=== PATIENT | male | born 1985 | race Caucasian/White ===

== ENCOUNTER 2017-04-23 09:12 | Inpatient (IN) | payer OTHER ==
[~2017-04-23] VITALS: Ht 182.9 cm; Wt 64.7 kg
[2017-04-23] MEDS ORDERED: PLEASE ENTER ALLERGIES MC SCH ×2 (09:30)
[2017-04-23] MEDS ORDERED: SODIUM CHLORIDE 0.9% 1,000ML IVBOLUS ONE (09:30)
[2017-04-23] MEDS ORDERED: PLEASE ENTER HEIGHT AND WEIGHT MC SCH (09:30)
[2017-04-23 09:55] LABS: HEMATOCRIT 46.1 % (39.2-51.8); HEMOGLOBIN 15.8 g/dL (13.7-18.0); WHITE BLOOD COUNT 9.5 x10^3/uL (3.4-10)
[2017-04-23 10:06] LABS: BLOOD UREA NITROGEN 10 mg/dL (7-18)
[2017-04-23 10:14] LABS: ACETAMINOPHEN < 2 mcg/mL (10-30)
[2017-04-23 11:16] LABS: DAU SCREEN DISCLAIMER
[2017-04-23] MEDS ORDERED: LORazepam 1MG TABLET ONE ×2 (13:08→23:30)
[2017-04-23] MEDS ORDERED: NICOTINE 21 MG/24 HR PATCH.TD24 ONE (13:17)
[2017-04-23] MEDS ORDERED: NICOTINE 21 MG/24 HR PATCH.TD24 TD ONE (13:30)
[2017-04-23] MEDS ORDERED: LORazepam 1MG TABLET PO ONE (13:30)
[2017-04-23] MEDS: NICOTINE 7 MG/24 HR PATCH.TD24 TD SCH ×2 (15:00→23:34)
[2017-04-23 16:06] VITALS: BP 138/91
[2017-04-23] MEDS: SODIUM CHLORIDE 0.9% 1,000 ML IV SCH ×2 (18:32→23:33)
[2017-04-23] MEDS ORDERED: POLYETHYLENE GLYCOL 17 GM PACKET PO ONE (19:00)
[2017-04-23 19:50] VITALS: BP 135/89
[2017-04-23] MEDS: FLUOXETINE 10 MG CAP PO SCH (23:33)
[2017-04-23] MEDS: ACETAMINOPHEN 325 MG TABLET PO PRN (23:33)
[2017-04-23] MEDS: LORazepam 0.5MG TABLET PO PRN (23:34)
[2017-04-24] MEDS: SODIUM CHLORIDE 0.9% 1,000 ML IV SCH ×2 (03:19→15:19)
[2017-04-24 03:22] VITALS: BP 122/79
[2017-04-24 05:48] LABS: BLOOD UREA NITROGEN 16 mg/dL (7-18)
[2017-04-24 07:23] VITALS: BP 117/75
[2017-04-24] MEDS: ACETAMINOPHEN 325 MG TABLET PO PRN ×2 (10:16→19:32)
[2017-04-24] MEDS ORDERED: LORazepam 1MG TABLET ONE (10:30)
[2017-04-24] MEDS: LORazepam 0.5MG TABLET PO PRN ×2 (10:32→19:33)
[2017-04-24 13:49] VITALS: BP 131/80
[2017-04-24] MEDS: NICOTINE 7 MG/24 HR PATCH.TD24 TD SCH (15:20)
[2017-04-24] MEDS: FLUOXETINE 10 MG CAP PO SCH (19:32)
[2017-04-24 20:23] VITALS: BP 129/88
[2017-04-24] MEDS ORDERED: ALUMINUM/MAG/SIMETHICONE 30 ML UDC PO PRN (22:00)
[2017-04-25] MEDS: ONDANSETRON 2MG/ML, 2ML IVPush PRN ×2 (01:18→07:26)
[2017-04-25] MEDS: SODIUM CHLORIDE 0.9% 1,000 ML IV SCH ×3 (01:19→23:24)
[2017-04-25] MEDS: LORazepam 0.5MG TABLET PO PRN ×3 (01:30→17:43)
[2017-04-25 04:01] VITALS: BP 112/74
[2017-04-25 07:13] VITALS: BP 115/85
[2017-04-25] MEDS ORDERED: LORazepam 1MG TABLET ONE ×2 (09:49→17:41)
[2017-04-25 12:58] VITALS: BP 122/79
[2017-04-25] MEDS: NICOTINE 7 MG/24 HR PATCH.TD24 TD SCH (15:23)
[2017-04-25 19:41] VITALS: BP 121/76
[2017-04-25] MEDS: FLUOXETINE 10 MG CAP PO SCH (20:58)
[2017-04-26] MEDS: SODIUM CHLORIDE 0.9% 1,000 ML IV SCH ×2 (00:43→12:15)
[2017-04-26] MEDS ORDERED: LORazepam 1MG TABLET ONE (01:50)
[2017-04-26] MEDS: LORazepam 0.5MG TABLET PO PRN ×2 (01:52→21:02)
[2017-04-26 03:44] VITALS: BP 135/89
[2017-04-26] MEDS: ONDANSETRON 2MG/ML, 2ML IVPush PRN (05:39)
[2017-04-26 07:47] VITALS: BP 121/81
[2017-04-26 14:00] VITALS: BP 126/87
[2017-04-26] MEDS: NICOTINE 7 MG/24 HR PATCH.TD24 TD SCH (15:08)
[2017-04-26] MEDS ORDERED: ONDANSETRON 4 MG TABLET PO PRN (17:30)
[2017-04-26 19:30] VITALS: BP 143/94
[2017-04-26] MEDS: FLUOXETINE 10 MG CAP PO SCH (21:00)
[2017-04-27] MEDS: LORazepam 0.5MG TABLET PO PRN ×2 (05:02→17:46)
[2017-04-27 07:34] VITALS: BP 127/82
[2017-04-27] MEDS: NICOTINE 7 MG/24 HR PATCH.TD24 TD SCH (15:08)
[2017-04-27 19:08] VITALS: BP 121/87
[2017-04-27] MEDS: OLANZAPINE 5 MG TABLET PO SCH (20:12)
[2017-04-27] MEDS: FLUOXETINE 10 MG CAP PO SCH (20:35)
[2017-04-28 07:59] VITALS: BP 123/73
[2017-04-28] MEDS: NICOTINE 7 MG/24 HR PATCH.TD24 TD SCH (15:34)
[2017-04-28 19:40] VITALS: BP 98/77
[2017-04-28 20:00] VITALS: BP 129/91
[2017-04-28] MEDS: OLANZAPINE 5 MG TABLET PO SCH (20:09)
[2017-04-28] MEDS: FLUOXETINE 10 MG CAP PO SCH (20:36)
[2017-04-29 08:15] VITALS: BP 116/87
== END 2017-04-29 14:39 | disposition left against medical advice (07) | DRG 894 ==
LOC: ED 09:25 → EDIP 13:23 → OBSVTOIN 14:53 → 4NOR 16:04 → 3E 04-26 20:05
PROVIDERS: ADMIT Hospitalist; ATTEND Internal Medicine
DX: F11.23 Opioid dependence with withdrawal (principal); R45.851 Suicidal ideations; K56.49 Other impaction of intestine; F15.90 Other stimulant use, unspecified, uncomplicated; F17.210 Nicotine dependence, cigarettes, uncomplicated; F41.0 Panic disorder [episodic paroxysmal anxiety]; R45.4 Irritability and anger; R45.1 Restlessness and agitation; M25.50 Pain in unspecified joint; F32.9 Major depressive disorder, single episode, unspecified
CPT/HCPCS: 36415; 74000; 80048; 80307; 80329; 82040; 84443; 85025; 93005; 99285; J2405; G0378; G0479; G0480; J7030

== ENCOUNTER 2017-04-29 15:53 | Emergency (ER) | payer OTHER ==
[~2017-04-29] VITALS: Ht 182.9 cm; Wt 74.2 kg
[2017-04-29 15:55] VITALS: BP 124/91
== END 2017-04-29 19:42 | disposition home or self-care (01) ==
LOC: ED 17:51
DX: F15.10 Other stimulant abuse, uncomplicated (principal); F11.10 Opioid abuse, uncomplicated
CPT/HCPCS: 99283

== ENCOUNTER 2017-06-14 17:01 | Observation (INO) | payer MEDICAID, OTHER ==
[~2017-06-14] VITALS: Ht 182.9 cm; Wt 86.5 kg
[2017-06-14 18:40] LABS: BASOPHILS # (AUTO) 0.08 x10^3/uL (0-0.1); BASOPHILS % (AUTO) 1 % (0-1); EOSINOPHILS # (AUTO) 0.09 x10^3/uL (0-0.4); EOSINOPHILS % (AUTO) 1 % (1-7); LYMPHOCYTES # (AUTO) 1.25 x10^3/uL (1-3.4); LYMPHOCYTES % (AUTO) 14 % (22-44); MD NO; MEAN CORPUSCULAR HEMOGLOBIN 30.9 pg (27.5-34.5); MEAN CORPUSCULAR VOLUME 90.9 fL (81-97); MEAN PLATELET VOLUME 8.8 fL (7.4-10.4); MONOCYTES # (AUTO) 0.57 x10^3/uL (0.2-0.8); MONOCYTES % (AUTO) 6 % (2-9); NEUTROPHILS # (AUTO) 7.14 x10^3/uL (1.8-6.8); NEUTROPHILS % (AUTO) 78 % (42-75); PLATELET COUNT 324 x10^3/uL (130-400); RED BLOOD COUNT 5.28 x10^6/uL (4.38-5.82); RED CELL DISTRIBUTION WIDTH 12.8 % (9.4-14.8)
[2017-06-14 18:53] LABS: ALANINE AMINOTRANSFERASE 36 U/L (12-78); ALBUMIN 3.9 g/dL (3.4-5.0); ANION GAP 4 mmol/L (5-15); CALCIUM 9.5 mg/dL (8.5-10.1); CHLORIDE 105 mmol/L (98-107); CREATININE 0.98 mg/dL (0.7-1.3)
[2017-06-14 18:55] LABS: ACETAMINOPHEN < 2 mcg/mL (10-30); ALKALINE PHOSPHATASE 82 U/L (45-117); BILIRUBIN,TOTAL 1.1 mg/dL (0.2-1.0); SALICYLATE LEVEL < 1.7 mg/dL (2.8-20.0); TOTAL PROTEIN 7.7 g/dL (6.4-8.2)
[2017-06-14 19:21] LABS: AMPHETAMINE SCREEN, URINE Positive (Negative); BARBITURATE SCREEN, URINE Negative (Negative); BENZODIAZEPINE SCREEN, URINE Negative (Negative); CANNABINOID SCREEN, URINE Negative (Negative); COCAINE SCREEN, URINE Negative (Negative); METHADONE SCREEN, URINE Negative (Negative); OPIATE SCREEN, URINE Positive (Negative)
[2017-06-15] MEDS ORDERED: OLANZAPINE 10 MG INJ IM PRN (00:30)
[2017-06-15] MEDS ORDERED: OLANZAPINE 5 MG TABLET PO PRN (00:30)
[2017-06-15] MEDS ORDERED: ACETAMINOPHEN 325 MG TABLET PO PRN (00:30)
[2017-06-15] MEDS ORDERED: ONDANSETRON ODT 4 MG PO PRN (00:30)
[2017-06-15 08:26] VITALS: BP 117/80
== END 2017-06-15 12:14 ==
LOC: ED 18:17 → INTOOBSV 22:26 → EDIP 22:26 → 2N 06-15 01:08
PROVIDERS: ADMIT Internal Medicine; ATTEND Internal Medicine
DX: R45.851 Suicidal ideations (principal); F32.9 Major depressive disorder, single episode, unspecified; F41.9 Anxiety disorder, unspecified; F11.90 Opioid use, unspecified, uncomplicated; Z59.0 Homelessness; Z87.891 Personal history of nicotine dependence
CPT/HCPCS: 36415; 80053; 80307; 80329; 85025; 99285; G0378; G0480